=== PATIENT | male | born 2000 | race Hispanic/Latino ===

== ENCOUNTER 2019-03-23 18:46 | Emergency (ER) | payer SELFPAY ==
[2019-03-23] MEDS ORDERED: NACL 0.9% 1000 ML 1,000 ML ONE (23:38)
[2019-03-24 01:32] VITALS: BP 154/75
[2019-03-24] MEDS ORDERED: NACL 0.9% 1000 ML 1,000 ML IV ONE (23:38)
--- NOTE | 2019-03-25 07:53 | XRay Report ---
ROUTINE CHEST, TWO VIEWS: HISTORY: chest pain. This examination is just presented to me for interpretation due to technical factors at the hospital. The trachea, heart, mediastinal contour, lung miller and bony thorax are unremarkable. IMPRESSION: Unremarkable chest x-ray.
== END 2019-03-24 01:25 | disposition home or self-care (01) ==
LOC: ED 18:46
DX: R42 Dizziness and giddiness (principal); R00.2 Palpitations
CPT/HCPCS: 71046; 93005; 93010; 99283; J7030

== ENCOUNTER 2019-07-16 00:57 | Emergency (ER) | payer OTHER ==
[2019-07-16 01:07] VITALS: BP 143/83
--- NOTE | 2019-07-16 02:00 | XRay Report ---
CHEST 1 VIEW 07/16/2019 1:45 AM INDICATION / CLINICAL INFORMATION: Chest Pain. COMPARISON: 03/23/19 FINDINGS: SUPPORT DEVICES: None. HEART / MEDIASTINUM: No significant abnormality. LUNGS / PLEURA: No significant pulmonary or pleural abnormality. No pneumothorax. ADDITIONAL FINDINGS: No significant additional findings. IMPRESSION: 1. No acute findings. No change. Signer Name: Rocio Mejia MD Signed: 07/16/2019 1:55 AM Workstation Name: [employer]
--- NOTE | 2019-07-16 02:08 | Emergency Department Report ---
ED General Adult HPI - General Chief complaint: Dizziness Stated complaint: DIZZY, TINGLING ALL OVER, CHEST PAIN Source: patient Mode of arrival: Ambulatory Limitations: No Limitations - History of Present Illness Initial comments: Patient is a 18-year-old white male is a history of anxiety who presented to the ED with diffuse body sensation and tingling, chest pain, and chest tightness, and unanimously with lightheadedness after being told by one of his friends that the back pain in the abdominal pain that he had a mildly was life-threatening and that we having life-threatening emergency. Patient denies abdominal pain, nausea, vomiting, fever, chills, dysuria, change in vision, syncope, dizziness, cough, headache, hematochezia, testicular pain or change in vision. MD Complaint: Chest pain, diffuse arm and leg tingling sensations -: Sudden, hour(s) (3) Location: chest Radiation: non-radiation Severity scale (0 -10): 1 Quality: aching, dull Consistency: constant Improves with: none Worsens with: none Associated Symptoms: denies other symptoms, chest pain, loss of appetite. denies: confusion, cough, diaphoresis, fever/chills, headaches, malaise, nausea/vomiting, rash, seizure, shortness of breath, syncope, weakness Treatments Prior to Arrival: none - Related Data Previous Rx's Medication Instructions Recorded Last Taken Type hydrOXYzine PAMOATE [Vistaril] 25 mg PO Q6HR PRN #30 capsule 07/16/19 Unknown Rx Allergies Allergy/AdvReac Type Severity Reaction Status Date / Time No Known Allergies Allergy Verified 03/23/19 18:53 ED Review of Systems ROS: Stated complaint: DIZZY, TINGLING ALL OVER, CHEST PAIN Other details as noted in HPI Constitutional: denies: chills, fever Eyes: denies: eye pain, eye discharge, vision change ENT: denies: ear pain, throat pain Respiratory: denies: cough, shortness of breath, wheezing Cardiovascular: chest pain. denies: palpitations Endocrine: no symptoms reported Gastrointestinal: denies: abdominal pain, nausea, diarrhea Genitourinary: denies: urgency, dysuria Musculoskeletal: back pain, arthralgia, other (diffuse tingling sensation in upper and lower extremities bilaterally). denies: joint swelling Skin: denies: rash, lesions Neurological: denies: headache, weakness, numbness, paresthesias, confusion, abnormal gait, vertigo, other Psychiatric: anxiety. denies: depression Hematological/Lymphatic: denies: easy bleeding, easy bruising ED Past Medical Hx - Past Medical History Previous Medical History?: No - Surgical History Past Surgical History?: Yes Additional Surgical History: tonsilectomy - Social History Smoking Status: Never Smoker Substance Use Type: Other - Medications Home Medications: Home Medications Medication Instructions Recorded Confirmed Last Taken Type hydrOXYzine PAMOATE [Vistaril] 25 mg PO Q6HR PRN #30 capsule 07/16/19 Unknown Rx ED Physical Exam - General Limitations: No Limitations General appearance: alert, in no apparent distress - Head Head exam: Present: atraumatic, normocephalic, normal inspection - Eye Eye exam: Present: normal appearance, PERRL, EOMI Pupils: Present: normal accommodation - ENT ENT exam: Present: normal exam, normal orophraynx, mucous membranes moist, TM's normal bilaterally, normal external ear exam - Neck Neck exam: Present: normal inspection, full ROM - Respiratory Respiratory exam: Present: normal lung sounds bilaterally, chest wall tenderness (reproducible diffuse chest wall tenderness). Absent: respiratory distress, wheezes, rales, rhonchi, accessory muscle use, decreased breath sounds, prolonged expiratory - Cardiovascular Cardiovascular Exam: Present: regular rate, normal rhythm, normal heart sounds. Absent: systolic murmur, diastolic murmur, rubs, gallop - GI/Abdominal GI/Abdominal exam: Present: soft, normal bowel sounds. Absent: tenderness, guarding, rebound, hyperactive bowel sounds, hypoactive bowel sounds, organomegaly - Rectal Rectal exam: Present: deferred - Extremities Exam Extremities exam: Present: normal inspection, full ROM, normal capillary refill - Back Exam Back exam: Present: normal inspection, full ROM. Absent: tenderness, CVA tenderness (R), CVA tenderness (L), muscle spasm, paraspinal tenderness - Neurological Exam Neurological exam: Present: alert, oriented X3, CN II-XII intact, normal gait, reflexes normal - Psychiatric Psychiatric exam: Present: normal affect, normal mood, anxious - Skin Skin exam: Present: warm, dry, intact, normal color. Absent: rash ED Course Vital Signs 07/16/19 01:00 Temperature 98.3 F Pulse Rate 89 Respiratory 16 Rate Blood Pressure 143/83 O2 Sat by Pulse 98 Oximetry - Reevaluation(s) Reevaluation #1: 07/16/19 02:09 Patient is a 18-year-old white male is a history of anxiety who presented to the ED with diffuse body sensation and tingling, chest pain, and chest tightness, and unanimously with lightheadedness after being told by one of his friends that the back pain and the abdominal pain that he had earlier was life-threatening and that he was having life-threatening emergency. In the ED, patient is alert and oriented 3, anxious and in no acute distress with normal vital signs. [id number] glucose test was 101 mg/dL. Chest x-ray shows no acute cardiopulmonary abnormalities. Physical exam is positive for reproducible chest wall tenderness to palpation. Patient symptoms are likely due to acute anxiety. Patient was discharged home on Vistaril advised follow-up with his primary care physician in 5-7 days for reevaluation or return to the ED immediately if symptoms get worse. ED Medical Decision Making - Radiology Data Radiology results: report reviewed, image reviewed Chest x-ray shows no acute cardiopulmonary abnormalities or pneumonitis. - Medical Decision Making Patient is a 18-year-old white male is a history of anxiety who presented to the ED with diffuse body sensation and tingling, chest pain, and chest tightness, and unanimously with lightheadedness after being told by one of his friends that the back pain and the abdominal pain that he had earlier was life-threatening and that he was having life-threatening emergency. In the ED, patient is alert and oriented 3, anxious and in no acute distress with normal vital signs. [id number] glucose test was 101 mg/dL. Chest x-ray shows no acute cardiopulmonary abnormalities. Physical exam is positive for reproducible chest wall tenderness to palpation. Patient symptoms are likely due to acute anxiety. Patient was discharged home on Vistaril advised follow-up with his primary care physician in 5-7 days for reevaluation or return to the ED immediately if symptoms get worse. - Differential Diagnosis anxiety; chest wall muscle strain, acute costochondritis Critical care attestation.: If time is entered above; I have spent that time in minutes in the direct care of this critically ill patient, excluding procedure time. ED Disposition Clinical Impression: Anxiety as acute reaction to exceptional stress, Acute costochondritis Chest wall muscle strain Qualifiers: Encounter type: initial encounter Qualified Code(s): S29.011A - Strain of muscle and tendon of front wall of thorax, initial encounter Disposition: TO HOME OR SELFCARE Is pt being admited?: No Does the pt Need Aspirin: No Condition: Stable Instructions: Generalized Anxiety Disorder (ED) Additional Instructions: Take medications with food, drink plenty of fluids and follow-up with your primary care physician in 5-7 days for reevaluation. Return to the ED immediately if symptoms get worse. Prescriptions: hydrOXYzine PAMOATE [Vistaril] 25 mg PO Q6HR PRN #30 capsule PRN Reason: Anxiety Referrals: [facility] [Outside] - 3-5 Days Time of Disposition: 02:05 Print Language: PANAMANIAN
== END 2019-07-16 02:20 | disposition home or self-care (01) ==
LOC: ED 00:57
DX: S29.011A Strain of muscle and tendon of front wall of thorax, initial encounter (principal); F41.9 Anxiety disorder, unspecified; Z98.890 Other specified postprocedural states; Z79.899 Other long term (current) drug therapy; X58.XXXA Exposure to other specified factors, initial encounter; Y93.89 Activity, other specified; Y92.89 Other specified places as the place of occurrence of the external cause; Y99.8 Other external cause status
CPT/HCPCS: 71045; 82962; 93005; 93010; 99283